=== PATIENT | male | born 1980 | race Caucasian/White ===

== ENCOUNTER 2018-10-08 19:04 | Emergency (ER) | payer OTHER ==
[~2018-10-08] VITALS: Ht 177.8 cm; Wt 89.8 kg
[2018-10-08 19:08] VITALS: BP 131/92
[2018-10-08] MEDS ORDERED: NOHOMEMEDICATIONS (19:12)
[2018-10-08] MEDS ORDERED: GARAMYCIN5 ML OPHTHALMIC (19:33)
== END 2018-10-08 19:55 | disposition home or self-care (01) ==
LOC: M.ERS 19:04
DX: T15.92XA Foreign body on external eye, part unspecified, left eye, initial encounter (principal); X58.XXXA Exposure to other specified factors, initial encounter; Y93.89 Activity, other specified; Y92.89 Other specified places as the place of occurrence of the external cause; Y99.8 Other external cause status

== ENCOUNTER 2019-02-09 16:48 | Emergency (ER) | payer OTHER ==
[~2019-02-09] VITALS: Ht 177.8 cm; Wt 90.7 kg
[~2019-02-09 16:48] MED LIST: GARAMYCIN5 ML OPHTHALMIC; NOHOMEMEDICATIONS
[2019-02-09] MEDS ORDERED: NAPROSYN500 MG PO (17:57)
[2019-02-09] MEDS ORDERED: KEFLEX500 M1 PO (17:57)
[2019-02-09] MEDS ORDERED: NORCO 5-325 TA1 EAC1 PO (17:57)
[2019-02-09 18:27] VITALS: BP 133/78
== END 2019-02-09 18:28 | disposition home or self-care (01) ==
LOC: M.ERS 16:48
DX: S61.213A Laceration without foreign body of left middle finger without damage to nail, initial encounter (principal); W26.8XXA Contact with other sharp object(s), not elsewhere classified, initial encounter; Y93.89 Activity, other specified; Y92.89 Other specified places as the place of occurrence of the external cause; Y99.8 Other external cause status